=== PATIENT | male | born 1950 | race Caucasian/White ===

== ENCOUNTER 2016-12-27 04:00 | Emergency (ER) | payer OTHER ==
--- NOTE | 2016-12-27 05:02 | ED NURSING NOTES ---
Clinical Report - Nurses [facility] [address] [place] [address] 12/27/2016 4:00 Patient: NIKOLE PEDRAZA TRIAGE Triage time 04:Dec 27 2016. Acuity: LEVEL 4. Chief Complaint: (Neck Pain). 04:08 12/27/16. SEPSIS SCREEN: Sepsis Screen. Negative (no infection suspected/documented). JUAN COMA SCORE: [place] Coma Scale: 15- eyes open spontaneously (4); best verbal response- oriented x 4 (5); best motor response- obeys commands (6). --04:14 Elizabeth Bolden R.N. 04:08 12/27/16. BP: 174/111. HR: 69. RR: 18. O2 saturation: 100% on room air. Temp: 97.6 F. Pain level now: 03/30. --04:14 Elizabeth Bolden R.N. Weight: 79.3 kg stated. Height/Length: 69 inches Per Patient. BMI: 25.8. --04:07 Elizabeth Bolden R.N. Medications Doxycycline. --04:11 Elizabeth Bolden R.N. Finasteride. --04:11 Elizabeth Bolden R.N. Omeprazole. --04:11 Elizabeth Bolden R.N. Simvastatin Oral. --04:14 Elizabeth Bolden R.N. Medication/allergy information source: the patient. --04:14 Elizabeth Bolden R.N. Allergies No Known Drug Allergy. --04:11 Elizabeth Bolden R.N. History Arrived by private vehicle. Historian: patient. Accompanied by family. Onset. (7 days ago). ( States woke with a stiff neck 7 days ago. Has been getting worse since then. States now cant sleep. Went to chiropractor Thursday. No better). 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 PAST MEDICAL HX: Has not received seasonal influenza immunization. SOCIAL HX: Never smoker. Regular alcohol use. History of drug use: marijuana. No infectious disease exposure. ABUSE ASSESSMENT: No report of abuse. SELF HARM ASSESSMENT: A self harm assessment was performed. The patient answered "no" to the question "Have you recently felt down, depressed, or hopeless?", "Have you noticed less interest or pleasure in doing things?", "Do you have thoughts of harming or killing yourself?", "Are you here because you tried to hurt yourself?", "Have you ever tried to hurt yourself before today?", "Have you recently had thoughts about harming or killing others?" and "Do you have any dangerous items in your possession?". NUTRITIONAL RISK ASSESSMENT: The nutritional risk assessment revealed no deficiencies. FUNCTIONAL ASSESSMENT: Functional assessment: no impairments noted. LEARNING NEEDS ASSESSMENT: The learning needs assessment revealed no barriers. SKIN INTEGRITY ASSESSMENT: Skin integrity risk assessment completed. No skin integrity risk identified. --04:14 Elizabeth Bolden R.N. PROBLEMS: Prostatitis. Tick Bite. --04:12 Elizabeth Bolden R.N. Hypercholesterolemia. --04:14 Elizabeth Bolden R.N. ADDITIONAL SURGERIES: Back Surgery. Foot surgery. --04:12 Elizabeth Bolden R.N. Hernia Repair. --04:14 Elizabeth Bolden R.N. Interventions ID band on patient. --04:14 Elizabeth Bolden R.N. NURSING PROGRESS NOTES 04:20 12/27/16. The initial plan of care for this patient includes an assessment with efforts to address the presence of pain; impairment of the musculoskeletal system. This plan of care was discussed with the patient and spouse. Reassurance given. Patient identifiers checked. Call light placed in reach. Side rails up x 1. Bed placed in lowest position. Brakes of bed on. Patient ready for evaluation. --04:35 Elizabeth Bolden R.N. 04:24 12/27/16. ( verbal order received to order x rays). --04:38 Elizabeth Bolden R.N. 04:38 12/27/16. ( x rays completed). --04:38 Elizabeth Bolden R.N. 05:00 12/27/16. Medium soft c-collar applied. --05:15 Elizabeth Bolden R.N. DISPOSITION / DISCHARGE 05:05 12/27/16. Departure time: 05:Dec 27 2016. Condition at departure: improved and stable. The goals identified in the patient's plan of care were met. No learning barriers present. Discharge instructions provided and reviewed with the patient. Reviewed medication(s) side effects, precautions, dosing and course information. Prescription(s) given to the patient. Reviewed referral to a primary care physician for followup. Summary of care provided to patient. Patient verbalized understanding. Written instructions provided in [place]. The patient was discharged home and accompanied by spouse. He left the Emergency Department ambulatory and via private vehicle. Spouse driving. --05:16 Elizabeth Bolden R.N. 04:08 12/27/16. BP: 174/111. HR: 69. RR: 18. O2 saturation: 100% on room air. Temp: 97.6 F. Pain level now: 03/30. --05:16 Elizabeth Bolden R.N. Locked/Released at 12/27/2016 5:19 by Elizabeth Bolden R.N.
--- NOTE | 2016-12-27 05:02 | ED NURSING NOTES ---
Clinical Report - Nurses [facility] [address] [place] [address] 12/27/2016 4:00 Patient: NIKOLE PEDRAZA TRIAGE Triage time 04:Dec 27 2016. Acuity: LEVEL 4. Chief Complaint: (Neck Pain). 04:08 12/27/16. SEPSIS SCREEN: Sepsis Screen. Negative (no infection suspected/documented). JUAN COMA SCORE: [place] Coma Scale: 15- eyes open spontaneously (4); best verbal response- oriented x 4 (5); best motor response- obeys commands (6). --04:14 Elizabeth Bolden R.N. 04:08 12/27/16. BP: 174/111. HR: 69. RR: 18. O2 saturation: 100% on room air. Temp: 97.6 F. Pain level now: 03/30. --04:14 Elizabeth Bolden R.N. Weight: 79.3 kg stated. Height/Length: 69 inches Per Patient. BMI: 25.8. --04:07 Elizabeth Bolden R.N. Medications Doxycycline. --04:11 Elizabeth Bolden R.N. Finasteride. --04:11 Elizabeth Bolden R.N. Omeprazole. --04:11 Elizabeth Bolden R.N. Simvastatin Oral. --04:14 Elizabeth Bolden R.N. Medication/allergy information source: the patient. --04:14 Elizabeth Bolden R.N. Allergies No Known Drug Allergy. --04:11 Elizabeth Bolden R.N. History Arrived by private vehicle. Historian: patient. Accompanied by family. Onset. (7 days ago). ( States woke with a stiff neck 7 days ago. Has been getting worse since then. States now cant sleep. Went to chiropractor Thursday. No better). 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 PAST MEDICAL HX: Has not received seasonal influenza immunization. SOCIAL HX: Never smoker. Regular alcohol use. History of drug use: marijuana. No infectious disease exposure. ABUSE ASSESSMENT: No report of abuse. SELF HARM ASSESSMENT: A self harm assessment was performed. The patient answered "no" to the question "Have you recently felt down, depressed, or hopeless?", "Have you noticed less interest or pleasure in doing things?", "Do you have thoughts of harming or killing yourself?", "Are you here because you tried to hurt yourself?", "Have you ever tried to hurt yourself before today?", "Have you recently had thoughts about harming or killing others?" and "Do you have any dangerous items in your possession?". NUTRITIONAL RISK ASSESSMENT: The nutritional risk assessment revealed no deficiencies. FUNCTIONAL ASSESSMENT: Functional assessment: no impairments noted. LEARNING NEEDS ASSESSMENT: The learning needs assessment revealed no barriers. SKIN INTEGRITY ASSESSMENT: Skin integrity risk assessment completed. No skin integrity risk identified. --04:14 Elizabeth Bolden R.N. PROBLEMS: Prostatitis. Tick Bite. --04:12 Elizabeth Bolden R.N. Hypercholesterolemia. --04:14 Elizabeth Bolden R.N. ADDITIONAL SURGERIES: Back Surgery. Foot surgery. --04:12 Elizabeth Bolden R.N. Hernia Repair. --04:14 Elizabeth Bolden R.N. Interventions ID band on patient. --04:14 Elizabeth Bolden R.N. NURSING PROGRESS NOTES 04:20 12/27/16. The initial plan of care for this patient includes an assessment with efforts to address the presence of pain; impairment of the musculoskeletal system. This plan of care was discussed with the patient and spouse. Reassurance given. Patient identifiers checked. Call light placed in reach. Side rails up x 1. Bed placed in lowest position. Brakes of bed on. Patient ready for evaluation. --04:35 Elizabeth Bolden R.N. 04:24 12/27/16. ( verbal order received to order x rays). --04:38 Elizabeth Bolden R.N. 04:38 12/27/16. ( x rays completed). --04:38 Elizabeth Bolden R.N. 05:00 12/27/16. Medium soft c-collar applied. --05:15 Elizabeth oBlden R.N. DISPOSITION / DISCHARGE 05:05 12/27/16. Departure time: 05:Dec 27 2016. Condition at departure: improved and stable. The goals identified in the patient's plan of care were met. No learning barriers present. Discharge instructions provided and reviewed with the patient. Reviewed medication(s) side effects, precautions, dosing and course information. Prescription(s) given to the patient. Reviewed referral to a primary care physician for followup. Summary of care provided to patient. Patient verbalized understanding. Written instructions provided in Bulgarian. The patient was discharged home and accompanied by spouse. He left the Emergency Department ambulatory and via private vehicle. Spouse driving. --05:16 Elizabeth Bolden R.N. 04:08 12/27/16. BP: 174/111. HR: 69. RR: 18. O2 saturation: 100% on room air. Temp: 97.6 F. Pain level now: 03/30. --05:16 Elizabeth Bolden R.N. Locked/Released at 12/27/2016 5:19 by Elizabeth Bolden R.N.
--- NOTE | 2016-12-27 05:02 | ED CLINICAL REPORT ---
Clinical Report - Physicians/Mid Levels [facility] [address] [place] [address] 12/27/2016 4:00 [id number] Time Seen: 04:10. Arrived- By private vehicle. Historian- patient. HISTORY OF PRESENT ILLNESS Chief Complaint: NECK PAIN. It is described as being severe and in the area of the cervical spine. The quality is noted to be aching, "pain" and similar to prior episodes. No radiation. Onset- about 1 week ago and it is still present. It was gradual in onset and has been constant and waxing/waning. No bowel dysfunction, sensory loss or motor loss. Patient denies an injury. Similar symptoms previously: Recent medical care: The patient was seen recently at another facility in a clinic. Seen for similar symptoms. ( he saw a chiropractor). REVIEW OF SYSTEMS No chills, fever, sweats, calf pain or chest pain. No cough, difficulty breathing, pedal edema, palpitations or abdominal pain. No constipation, diarrhea, nausea, vomiting or urinary problems. All systems otherwise negative, except as recorded above. PAST HISTORY Problems: Hypercholesterolemia. Prostatitis. Tick Bite. Additional Surgeries: Back Surgery. Foot surgery. Hernia Repair. Medications: Simvastatin Oral. Omeprazole. Finasteride. Doxycycline. Allergies: No Known Drug Allergy. SOCIAL HISTORY Never smoker. Regular alcohol use. History of occasional drug use: marijuana. FAMILY HISTORY No significant family medical history. ADDITIONAL NOTES The nursing notes have been reviewed. PHYSICAL EXAM Vital Signs: 12/27/2016 04:08 BP: 174/111. HR: 69. RR: 18. O2 saturation: 100%. Temp: 97.6 F. Pain level now: 7/10. Have been reviewed. Appearance: Alert. Eyes: Pupils equal, round and reactive to light. ENT: Pharynx normal. Neck: Pain in the neck upon movement. Muscle spasm of the neck. Decrease in ROM. No vertebral tenderness. No lymphadenopathy or meningeal signs. CVS: Normal heart rate and rhythm. Heart sounds normal. Respiratory: Breath sounds normal. Abdomen: Normal inspection. Soft and nontender. Bowel sounds normal. No organomegaly. No mass. Back: No tenderness. Skin: Skin warm and dry. Normal skin color. Normal skin turgor. Neuro: Mood/affect normal. No motor deficit. No sensory deficit. PROGRESS AND PROCEDURES Course of Care: Patient is stable. Patient/family counseled. Old medical records reviewed. Disposition: Discharged. Condition: stable. 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 INSTRUCTIONS Wear soft neck collar until better. Apply ice for 20 minutes four times a day until better. Don't apply ice directly to skin and don't use while asleep. No driving or operating machinery while taking medication. No strenuous activity until better. Warnings: COMPLICATIONS: Complications from this condition include: possible injury to a nerve, possible injury to a tendon and possible injury to a ligament. Future problems may include pain and deformity. It is important to follow up with a physician for further evaluation and treatment. GENERAL WARNINGS: Return or contact your physician immediately if your condition worsens or changes unexpectedly, if not improving as expected, or if other problems arise. Prescription Medications: Flexeril 10 mg: take 1 orally every 8 hours as needed. Dispense fifteen (15). No refills. Substitution is permissible. Ketorolac 10 mg tablets: Take 1 tablet orally every 6 hours as needed. Dispense fifteen (15). No refills. Follow-up: Follow up with your doctor Thursday in two days if not better. Understanding of the discharge instructions verbalized by patient and family. (Electronically signed by Nando Maharaj MD 12/29/2016 12:40)
--- NOTE | 2016-12-27 05:02 | ED ORDER SUMMARY ---
..... Patient: NIKOLE PEDRAZA OrderSheet [facility] VisitID: [id number] [address] [place] [address] 66y, M Registration Date/Time: 12/27/2016 ORDER SHEET Weight: 79.3 kg (stated) Allergies: No Known Drug Allergy GENERAL ORDERS: Cervical Spine 2 or 3V Urgent (04:25 12/27/2016 Milka R.NPiotr verbal order read back to Espinoza SOLIZ) (Ack 4:27 SRelolyond) (4:34 Milka R.N.) Soft Collar (04:59 12/27/2016 Espinoza SOLIZ) (5:03 Milka R.N.) MEDICATION ORDERS: IV FLUIDS: ORDER SHEET NOTES: [Electronically signed by Elizabeth Bolden R.N. (05:19 12/27/2016)] [Electronically signed by Nando Maharaj MD (12:40 12/29/2016)] [Electronically locked/signed by Elizabeth Bolden R.N. (05:19 12/27/2016)]
--- NOTE | 2016-12-27 05:02 | ED ORDER SUMMARY ---
..... Patient: NIKOLE PEDRAZA OrderSheet [facility] VisitID: [id number] [address] [place] [address] 66y, M Registration Date/Time: 12/27/2016 ORDER SHEET Weight: 79.3 kg (stated) Allergies: No Known Drug Allergy GENERAL ORDERS: Cervical Spine 2 or 3V Urgent (04:25 12/27/2016 Milka R.NPiotr verbal order read back to Espinoza SOLIZ) (Ack 4:27 SRelolyond) (4:34 Milka R.N.) Soft Collar (04:59 12/27/2016 Espinoza SOLIZ) (5:03 Milka R.N.) MEDICATION ORDERS: IV FLUIDS: ORDER SHEET NOTES: [Electronically signed by Elizabeth Bolden R.N. (05:19 12/27/2016)] [Electronically signed by Nando Maharaj MD (12:40 12/29/2016)] [Electronically locked/signed by Elizabeth Bolden R.N. (05:19 12/27/2016)]
--- NOTE | 2016-12-27 05:02 | ED CLINICAL REPORT ---
Clinical Report - Physicians/Mid Levels [facility] [address] [place] [address] 12/27/2016 4:00 [id number] Time Seen: 04:10. Arrived- By private vehicle. Historian- patient. HISTORY OF PRESENT ILLNESS Chief Complaint: NECK PAIN. It is described as being severe and in the area of the cervical spine. The quality is noted to be aching, "pain" and similar to prior episodes. No radiation. Onset- about 1 week ago and it is still present. It was gradual in onset and has been constant and waxing/waning. No bowel dysfunction, sensory loss or motor loss. Patient denies an injury. Similar symptoms previously: Recent medical care: The patient was seen recently at another facility in a clinic. Seen for similar symptoms. ( he saw a chiropractor). REVIEW OF SYSTEMS No chills, fever, sweats, calf pain or chest pain. No cough, difficulty breathing, pedal edema, palpitations or abdominal pain. No constipation, diarrhea, nausea, vomiting or urinary problems. All systems otherwise negative, except as recorded above. PAST HISTORY Problems: Hypercholesterolemia. Prostatitis. Tick Bite. Additional Surgeries: Back Surgery. Foot surgery. Hernia Repair. Medications: Simvastatin Oral. Omeprazole. Finasteride. Doxycycline. Allergies: No Known Drug Allergy. SOCIAL HISTORY Never smoker. Regular alcohol use. History of occasional drug use: marijuana. FAMILY HISTORY No significant family medical history. ADDITIONAL NOTES The nursing notes have been reviewed. PHYSICAL EXAM Vital Signs: 12/27/2016 04:08 BP: 174/111. HR: 69. RR: 18. O2 saturation: 100%. Temp: 97.6 F. Pain level now: 7/10. Have been reviewed. Appearance: Alert. Eyes: Pupils equal, round and reactive to light. ENT: Pharynx normal. Neck: Pain in the neck upon movement. Muscle spasm of the neck. Decrease in ROM. No vertebral tenderness. No lymphadenopathy or meningeal signs. CVS: Normal heart rate and rhythm. Heart sounds normal. Respiratory: Breath sounds normal. Abdomen: Normal inspection. Soft and nontender. Bowel sounds normal. No organomegaly. No mass. Back: No tenderness. Skin: Skin warm and dry. Normal skin color. Normal skin turgor. Neuro: Mood/affect normal. No motor deficit. No sensory deficit. PROGRESS AND PROCEDURES Course of Care: Patient is stable. Patient/family counseled. Old medical records reviewed. Disposition: Discharged. Condition: stable. 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 INSTRUCTIONS Wear soft neck collar until better. Apply ice for 20 minutes four times a day until better. Don't apply ice directly to skin and don't use while asleep. No driving or operating machinery while taking medication. No strenuous activity until better. Warnings: COMPLICATIONS: Complications from this condition include: possible injury to a nerve, possible injury to a tendon and possible injury to a ligament. Future problems may include pain and deformity. It is important to follow up with a physician for further evaluation and treatment. GENERAL WARNINGS: Return or contact your physician immediately if your condition worsens or changes unexpectedly, if not improving as expected, or if other problems arise. Prescription Medications: Flexeril 10 mg: take 1 orally every 8 hours as needed. Dispense fifteen (15). No refills. Substitution is permissible. Ketorolac 10 mg tablets: Take 1 tablet orally every 6 hours as needed. Dispense fifteen (15). No refills. Follow-up: Follow up with your doctor Thursday in two days if not better. Understanding of the discharge instructions verbalized by patient and family. (Electronically signed by Nando Maharaj MD 12/29/2016 12:40)
--- NOTE | 2016-12-27 05:53 | DIAGNOSTIC IMAGING REPORT ---
PROCEDURE: XR CERVICAL SPINE 2 OR 3 VIEW INDICATION: NECK PAIN TECHNIQUE: Three views. COMPARISON: None. FINDINGS: There is moderate to marked disc space narrowing at C4-5, C5-6, and C6-7. There are marked degenerative change of the facet joints. Findings are associated with straightening of the cervical lordosis. There are dystrophic calcifications of the ligamentum nuchae. No evidence of an acute process or fracture. IMPRESSION: 1. Moderate to marked degenerative changes of the cervical spine. cervical spine.
--- NOTE | 2016-12-29 12:40 | ED DISCHARGE INSTRUCTIONS ---
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 INSTRUCTIONS Wear soft neck collar until better. Apply ice for 20 minutes four times a day until better. Don't apply ice directly to skin and don't use while asleep. No driving or operating machinery while taking medication. No strenuous activity until better. Warnings: COMPLICATIONS: Complications from this condition include: possible injury to a nerve, possible injury to a tendon and possible injury to a ligament. Future problems may include pain and deformity. It is important to follow up with a physician for further evaluation and treatment. GENERAL WARNINGS: Return or contact your physician immediately if your condition worsens or changes unexpectedly, if not improving as expected, or if other problems arise. Prescription Medications: Flexeril 10 mg: take 1 orally every 8 hours as needed. Dispense fifteen (15). No refills. Substitution is permissible. Ketorolac 10 mg tablets: Take 1 tablet orally every 6 hours as needed. Dispense fifteen (15). No refills. Follow-up: Follow up with your doctor Thursday in two days if not better. Understanding of the discharge instructions verbalized by patient and family. ADDITIONAL INFORMATION Neck Pain [No Trauma] There are several possible causes of neck pain without injury: You can get a minor ligament sprain or muscle strain from a sudden minor neck movement. Sleeping with your neck in an awkward position can also cause this. Some persons respond to emotional stress by tensing the muscles of their neck, shoulders and upper back. Chronic spasm in these muscles can cause neck pain and sometimes headaches. Gradualwear and tearof the joints in the spine can cause degenerative arthritis.This can be a source of occasional or chronic neck pain. With aging or repeated small injuries to the neck, the spinal disks (the cushions between each spinal bone) may bulge and put pressure on a nearby spinal nerve. This causes tingling, pain or numbness spreading from the neck to the shoulder, arm or hand on one side. Acute neck pain usually gets better in one to two weeks. Neck pain related to disk disease, arthritis in the spinal joints or spinal stenosis (narrowing of the spinal canal) can become chronic and last for months or years. Unless you had a forceful physical injury (for example, a car accident or fall), X-rays are usually not ordered for the initial evaluation of neck pain. If pain continues and does not respond to medical treatment, x-rays and other tests may be performed at a later time. Home Care: Rest and relax the muscles. Use a comfortable pillow that supports the head and keeps the spine in a neutral position. The position of the head should not be tilted forward or backward. A rolled up towel may help for a custom fit. Some persons find relief with heat (hot shower, hot bath or heating pad) and massage, while others prefer cold packs (crushed or cubed ice in a plastic bag, wrapped in a towel) . Try both and use the method that feels best for 20 minutes several times a day. You may use acetaminophen (Tylenol) or ibuprofen (Motrin, Advil) to control pain, unless another medicine was prescribed. [ NOTE : If you have chronic liver or kidney disease or ever had a stomach ulcer or GI bleeding, talk with your doctor before using these medicines.] Follow Up with your physician or this facility if your symptoms do not show signs of improvement after one week. Physical therapy or further tests may be needed. [NOTE: A radiologist will review any X-rays or CT scans that were taken. We will notify you of any new findings that may affect your care.] Get Prompt Medical Attention if any of the following occur: Pain becomes worse or spreads into one or both arms Weakness or numbness in one or both arms Increasing headache Neck swelling, difficulty or painful swallowing Fever of 100.4F (38C) or higher, or as directed by your healthcare provider Neck Spasm [No Trauma] Spasm of the neck muscles can occur after a sudden awkward neck movement. Sleeping with your neck in a crooked position can also cause spasm. Some persons respond to emotional stress by tensing the muscles of their neck, shoulders and upper back. If neck spasm lasts long enough, it can cause headache. The treatment described below will usually help the pain to go away in 5-7 days. Pain that continues may require further evaluation or other types of treatment such as physical therapy. Home Care: Rest and relax the muscles. Use a comfortable pillow that supports the head and keeps the spine in a neutral position. The position of the head should not be tilted forward or backward. A rolled up towel may help for a custom fit. Some persons find relief with heat (hot shower, hot bath or heating pad) and massage, while others prefer cold packs (crushed or cubed ice in a plastic bag, wrapped in a towel). Try both and use the method that feels best for 20 minutes several times a day. You may use acetaminophen (Tylenol) or ibuprofen (Motrin, Advil) to control pain, unless another medicine was prescribed. [NOTE: If you have chronic liver or kidney disease or ever had a stomach ulcer or GI bleeding, talk with your doctor before using these medicines.] Follow Up with your doctor or this facility if your symptoms do not show signs of improvement after one week. Physical therapy or further evaluation may be needed. [NOTE: If x-rays were taken, they will be reviewed by a radiologist. You will be notified of any new findings that may affect your care.] Return Promptly or contact your doctor if any of the following occurs: Pain becomes worse or spreads into one or both arms Weakness or numbness in one or both arms Increasing headache with nausea or vomiting Fever over 100.4F (38.0C) Cervical Collar A cervical collar is used to provide support and limit movement of the neck. It is usually provided after a moderate to severe neck sprain. Home Use: Unless told otherwise, the collar should be worn whenever you are out of bed. It may be taken off for sleep and for bathing. When lying down, support your neck with a small pillow or rolled up towel under the neck. When adjusting your pillows, try to keep the neck in a neutral position (in line with the upper back). Pillows should not be so thick as to bend your head forward. Do not wear the collar longer than advised by your doctor. This may lead to further stiffness from lack of neck movement. Get Prompt Medical Attention if any of the following occur: Increasing pain in the neck Weakness or numbness in the arms or hands Pain spreading from the neck into the shoulder or arms Fever of 100.4F(38C) or higher, or as directed by your healthcare provider Cyclobenzaprine Hydrochloride Oral tablet What is this medicine? CYCLOBENZAPRINE (issac schulte) is a muscle relaxer. It is used to treat muscle pain, spasms, and stiffness. How should I use this medicine? Take this medicine by mouth with a glass of water. Follow the directions on the prescription label. If this medicine upsets your stomach, take it with food or milk. Take your medicine at regular intervals. Do not take it more often than directed. Talk to your special education secretary regarding the use of this medicine in children. Special care may be needed. What side effects may I notice from receiving this medicine? Side effects that you should report to your doctor or health client care representative as soon as possible: allergic reactions like skin rash, itching or hives, swelling of the face, lips, or tongue chest pain fast heartbeat hallucinations seizures vomiting Side effects that usually do not require medical attention (report to your doctor or health client care representative if they continue or are bothersome): headache What may interact with this medicine? Do not take this medicine with any of the following medications: cisapride droperidol flecainide grepafloxacin halofantrine levomethadyl MAOIs like Carbex, Eldepryl, Marplan, Nardil, and Parnate nilotinib pimozide probucol sertindole This medicine may also interact with the following medications: abarelix alcohol contrast dyes dolasetron guanethidine medicines for cancer medicines for depression, anxiety, or psychotic disturbances medicines to treat an irregular heartbeat medicines used for sleep or numbness during surgery or procedure methadone octreotide ondansetron palonosetron phenothiazines like chlorpromazine, mesoridazine, prochlorperazine, thioridazine some medicines for infection like alfuzosin, chloroquine, clarithromycin, levofloxacin, mefloquine, pentamidine, troleandomycin tramadol vardenafil What if I miss a dose? If you miss a dose, take it as soon as you can. If it is almost time for your next dose, take only that dose. Do not take double or extra doses. Where should I keep my medicine? Keep out of the reach of children. Store at room temperature between 15 and 30 degrees C (59 and 86 degrees F). Keep container tightly closed. Throw away any unused medicine after the expiration date. What should I tell my health care provider before I take this medicine? They need to know if you have any of these conditions: heart disease, irregular heartbeat, or previous heart attack liver disease thyroid problem an unusual or allergic reaction to cyclobenzaprine, tricyclic antidepressants, lactose, other medicines, foods, dyes, or preservatives or trying to get breast-feeding What should I watch for while using this medicine? Check with your doctor or health client care representative if your condition does not improve within 1 to 3 weeks. You may get drowsy or dizzy when you first start taking the medicine or change doses. Do not drive, use machinery, or do anything that may be dangerous until you know how the medicine affects you. Stand or sit up slowly. Your mouth may get dry. Drinking water, chewing sugarless gum, or sucking on hard candy may help. Ketorolac Tromethamine Oral tablet What is this medicine? KETOROLAC (oscar toe ROLE ak) is a non-steroidal anti-inflammatory drug (NSAID). It is used for a short while to treat moderate to severe pain, including pain after surgery. It should not be used for more than 5 days. How should I use this medicine? Take this medicine by mouth with a full glass of water. Follow the directions on the prescription label. Take your medicine at regular intervals. Do not take your medicine more often than directed. Do not take more than the recommended dose. A special MedGuide will be given to you by the pharmacist with each prescription and refill. Be sure to read this information carefully each time. Talk to your special education secretary regarding the use of this medicine in children. While this drug may be prescribed for children as young as 16 years of age for selected conditions, precautions do apply. Patients over 65 years old may have a stronger reaction and need a smaller dose. What side effects may I notice from receiving this medicine? Side effects that you should report to your doctor or health client care representative as soon as possible: allergic reactions like skin rash, itching or hives, swelling of the face, lips, or tongue black or tarry stools breathing problems changes in vision chest pain high blood pressure nausea or vomiting redness, blistering, peeling or loosening of the skin, including inside the mouth severe abdominal pain slurred speech or weakness on one side of the body unexplained weight gain or swelling unusual bleeding or bruising unusually weak or tired yellowing of eyes or skin Side effects that usually do not require medical attention (report to your doctor or health client care representative if they continue or are bothersome): diarrhea dizziness headache heartburn What may interact with this medicine? Do not take this medicine with any of the following medications: aspirin and aspirin-like medicines cidofovir methotrexate NSAIDs, medicines for pain and inflammation, like ibuprofen or naproxen pemetrexed probenecid This medicine may also interact with the following medications: alcohol alendronate alprazolam carbamazepine cyclosporine diuretics flavocoxid fluoxetine ginkgo lithium medicines for high blood pressure like enalapril medicines that affect platelets like pentoxifylline medicines that treat or prevent blood clots like heparin, warfarin muscle relaxants phenytoin steroid medicines like prednisone or cortisone thiothixene What if I miss a dose? If you miss a dose, take it as soon as you can. If it is almost time for your next dose, take only that dose. Do not take double or extra doses. Where should I keep my medicine? Keep out of the reach of children. Store at room temperature between 20 and 25 degrees C (68 and 77 degrees F). Throw away any unused medicine after the expiration date. What should I tell my health care provider before I take this medicine? They need to know if you have any of these conditions: asthma bleeding problems like hemophilia cigarette smoker drink more than 3 alcohol containing drinks a day heart disease or circulation problems such as heart failure or leg edema (fluid retention) high blood pressure kidney disease liver disease stomach bleeding or ulcers an unusual or allergic reaction to ketorolac, aspirin, other NSAIDs, other medicines, foods, dyes, or preservatives or trying to get breast-feeding What should I watch for while using this medicine? Tell your doctor or health client care representative if your pain does not get better. Talk to your doctor before taking another medicine for pain. Do not treat yourself. This medicine does not prevent heart attack or stroke. In fact, this medicine may increase the chance of a heart attack or stroke. The chance may increase with longer use of this medicine and in people who have heart disease. If you take aspirin to prevent heart attack or stroke, talk with your doctor or health client care representative. Do not take medicines such as ibuprofen and naproxen with this medicine. Side effects such as stomach upset, nausea, or ulcers may be more likely to occur. Many medicines available without a prescription should not be taken with this medicine. This medicine can cause ulcers and bleeding in the stomach and intestines at any time during treatment. Do not smoke cigarettes or drink alcohol. These increase irritation to your stomach and can make it more susceptible to damage from this medicine. Ulcers and bleeding can happen without warning symptoms and can cause . You may get drowsy or dizzy. Do not drive, use machinery, or do anything that needs mental alertness until you know how this medicine affects you. Do not stand or sit up quickly, especially if you are an older patient. This reduces the risk of dizzy or fainting spells. This medicine can cause you to bleed more easily. Try to avoid damage to your teeth and gums when you brush or floss your teeth. You have been given the following additional information: Neck Pain, No Trauma Neck Spasm, No Trauma Cervical Collar Cyclobenzaprine Hydrochloride Oral tablet Ketorolac Tromethamine Oral tablet No driving or operating machinery while taking medication. No strenuous activity until better. (Electronically signed by Nando Maharaj MD 12/29/2016 12:40)
--- NOTE | 2016-12-29 12:40 | ED MAR SUMMARY ---
..... Medication Administration Record [facility] [address] [place], [place] [id number] Patient: NIKOLE PEDRAZA Visit ID: [id number] 66y, M Weight: 79.3 kg Height/Length: 69 in BMI: 25.8 ALLERGIES: No Known Drug Allergy
--- NOTE | 2016-12-29 12:40 | ED MED RECONCILIATION SUMMARY ---
Patient: NIKOLE PEDRAZA Medication Reconciliation Report [facility] VisitID: [id number] [place] [address] 66y, M Registration Date/Time: 12/27/2016 Weight: 79.3 kg Height/Length: 69 in. BMI: 25.8 ALLERGIES: No Known Drug Allergy The patient's Home Medications are listed below: THE FOLLOWING MEDICATIONS NEED TO BE RECONCILED: Doxycycline Finasteride Omeprazole Simvastatin Oral The source(s) of the original Home Medication information: patient The following Medications were given to the patient in the Emergency Department: None. The following Medications were prescribed to the patient: Flexeril 10 mg: take 1 orally every 8 hours as needed. Dispense fifteen (15). No refills. Substitution is permissible. -- Nando Maharaj MD Ketorolac 10 mg tablets: Take 1 tablet orally every 6 hours as needed. Dispense fifteen (15). No refills. -- Nando Maharaj MD
--- NOTE | 2016-12-29 12:40 | ED MAR SUMMARY ---
..... Medication Administration Record [facility] [address] [place], [place] [id number] Patient: NIKOLE PEDRAZA Visit ID: [id number] 66y, M Weight: 79.3 kg Height/Length: 69 in BMI: 25.8 ALLERGIES: No Known Drug Allergy
--- NOTE | 2016-12-29 12:40 | ED MED RECONCILIATION SUMMARY ---
Patient: NIKOLE PEDRAZA Medication Reconciliation Report [facility] VisitID: [id number] [place] [address] 66y, M Registration Date/Time: 12/27/2016 Weight: 79.3 kg Height/Length: 69 in. BMI: 25.8 ALLERGIES: No Known Drug Allergy The patient's Home Medications are listed below: THE FOLLOWING MEDICATIONS NEED TO BE RECONCILED: Doxycycline Finasteride Omeprazole Simvastatin Oral The source(s) of the original Home Medication information: patient The following Medications were given to the patient in the Emergency Department: None. The following Medications were prescribed to the patient: Flexeril 10 mg: take 1 orally every 8 hours as needed. Dispense fifteen (15). No refills. Substitution is permissible. -- Nando Maharaj MD Ketorolac 10 mg tablets: Take 1 tablet orally every 6 hours as needed. Dispense fifteen (15). No refills. -- Nando Maharaj MD
== END 2016-12-27 05:05 | disposition home or self-care (01) ==
LOC: ED SRH 04:00
DX: M50.30 Other cervical disc degeneration, unspecified cervical region (principal)